=== PATIENT | female | born 2000 | race Caucasian/White ===

== ENCOUNTER 2018-04-24 18:07 | Emergency (ER) | payer MEDICAID, OTHER ==
[2018-04-24] MEDS: HYDROCODONE/APAP (5/325) TAB PO (18:56)
== END 2018-04-24 21:02 | disposition home or self-care (01) ==
LOC: FTE 18:07
DX: M25.561 Pain in right knee (principal); F17.210 Nicotine dependence, cigarettes, uncomplicated
CPT/HCPCS: 29505; 73562; 73610-RT; 73630; 81025; 99283-25